=== PATIENT | female | born 1970 | race Caucasian/White ===

== ENCOUNTER → 2017-03-12 | Outpatient (CLI) | payer BC | END | disposition home or self-care (01) | LOC: C.PAPS 11:23 | PROVIDERS: ATTEND Family Medicine | DX: Z01.419 Encounter for gynecological examination (general) (routine) without abnormal findings (principal) ==

== ENCOUNTER → 2018-02-13 | Outpatient (CLI) | payer OTHER ==
[~2018-02-13] MED LIST: PEDICHW PO
[2018-02-13 13:20] LABS: BASO % 0.4 %; BASO ABS # 0.03 K/uL (0-0.2); EOS % 1.9 %; EOS ABS # 0.13 K/uL (0-0.5); HEMATOCRIT 41.3 % (37-47); HEMOGLOBIN 14.3 g/dL (12.0-16.0); IG# 0.01 K/uL (0.00-0.02); LYMPH % 31.7 %; MEAN CELL VOLUME 88.4 fL (80-100); MEAN CORPUSCULAR HEMOGLOBIN 30.6 pg (25-34); MEAN CORPUSCULAR HGB CONC 34.6 g/dl (32-36); MEAN PLATELET VOLUME 11.1 fL (7.4-10.4); MONO % 7.2 %; NEUT % 58.7 %; NEUT ABS # 4.08 K/uL (1.4-6.5); PLATELET COUNT 202 K/uL (130-400); RED CELL DISTRIBUTION WIDTH CV 13.1 % (11.5-14.5); RED CELL DISTRIBUTION WIDTH SD 42.1 fL (36.4-46.3); WHITE BLOOD COUNT 6.95 K/uL (4.8-10.8)
[2018-02-13 13:30] LABS: PTT PATIENT 27.2 SECONDS (21.0-31.0)
[2018-02-13 13:41] LABS: BLOOD UREA NITROGEN 17 mg/dl (7-18); CALCIUM 8.5 mg/dl (8.5-10.1); CARBON DIOXIDE 28 mmol/L (21-32); CREATININE 1.05 mg/dl (0.60-1.20); GLUCOSE 86 mg/dl (70-99); POTASSIUM 4.3 mmol/L (3.5-5.1); SODIUM 140 mmol/L (136-145)
== END | disposition home or self-care (01) ==
LOC: C.LAB1850 11:54
PROVIDERS: ATTEND Plastic Surgery
DX: D17.0 Benign lipomatous neoplasm of skin and subcutaneous tissue of head, face and neck (principal)

== ENCOUNTER → 2018-02-20 | Day surgery (SDC) | payer OTHER ==
[2018-01-27 11:22] VITALS: Ht 162.6 cm; Wt 74.1 kg
[~2018-02-20] VITALS: Ht 162.6 cm; Wt 74.1 kg
[~2018-02-20] MED LIST changes: +ACETAMINOPHEN 325 MG TAB PO PRN; +ATROPINE SULFATE 0.1 MG/ML 5ML SYR IV PRN; +CEFAZOLIN 2000MG IV PUSH 15 ML IV SCH; +EpHEDrine SULFATE INJ 50 MG/ML AMP IV PRN; +FENTANYL CITRATE INJ 50 MCG/1 ML 2 ML VIAL IV PRN; +FENTANYL CITRATE INJ 50 MCG/1 ML 2 ML VIAL ONE; +LACTATED RINGER'S 1000ML 1,000 ML IV SCH; +LIDOCAINE HCL 2% 2 ML VIAL (20MG/ML) ONE; +LIDOCAINE/EPINEPHRINE 1% 20 ML VIAL ONE; +METOCLOPRAMIDE HCL INJ 5 MG/ML 2 ML VIAL IV PRN; +MIDAZOLAM HCL 1 MG/ML 2ML VIAL ONE; +ONDANSETRON INJ 2 MG/ML 2 ML VIAL IV PRN; +OXYCODONE/ACETAMINOPHEN 5-325 TAB PO PRN; +POVIDONE-IODINE OP SOLN 30 ML BTL ONE; +PROPOFOL IV EMULSION 10 MG/ML 20 ML VIAL ONE; +SODIUM CHLORIDE 0.9% 1000ML 1,000 ML IV SCH
--- NOTE | 2018-02-20 06:53 | History & Physical Bridge - [place] ---
H&P Re-Evaluation Bridge Note: I have examined the patient, reviewed the History & Physical and in the interval since the performance of the History & Physical I have noted the following changes of clinical significance: No changes noted. H+P was outdated , new H+P documented.
--- NOTE | 2018-02-20 07:57 | [facility] Post Operative Brief Note ---
Immediate Operative Summary Operative Date February 20, 2018. Pre-Operative Diagnosis LIPOMA OF SKIN, FACE Post-Operative Diagnosis SAME Procedure(s) Performed Left Central Forehead Lipoma Excision Surgeon Dr. James Drew Spinner Hydraulic Surgeon(s) Celia Burrell PA-C Estimated Blood Loss 2 ML Findings Consistent with Post-Op Diagnosis Specimens A. Reccurrent Lipoma Left Central Forehead Anesthesia Type MAC Complication(s) none Disposition Disposition: Recovery Room / PACU
--- NOTE | 2018-02-20 08:00 | Discharge Instructions ---
Discharge Instructions Date of Service February 20, 2018. Admission Reason for Admission: Lipoma Of Skin, Face Discharge Discharge Diagnosis / Problem: lipoma of face Discharge Goals Goal(s): Decrease discomfort, Improve function Activity Recommendations Activity Limitations: per Instructions/Follow-up section ACTIVITY RECOMMENDATIONS: __Normal activities _x_No bending, lifting, vigorous activity or straining for 3 days __No driving _x_Driving allowed when you are off pain medications _x_Walking permitted __You should have help at home for ___ days DRESSINGS: _x_No dressings required __Keep dressings dry/in place until first office visit __Remove dressings ___ and leave dressings off _x_Apply ice __3_ days __Remove dressings and reapply garment __Apply antibiotic ointment (Bacitracin, Neosporin, etc) to wounds 3-4 times/ day for 10 days BATHING: _x_Keep dressings dry __Sponge bathing permitted _x_Showering permitted in 2 days _x_No swimming, hot tubs or soaking in a tub MEDICATIONS: Resume previous medications unless instructed otherwise by your surgeon. _x_Do not use aspirin, Motrin, Advil or Ibuprofen as these may promote bleeding. Please use Tylenol. _x_Prescription(s) provided: pain medication was provided at your last office visit OTHER INSTRUCTIONS: __Record drain output 2-3 times per day SPECIAL CARE INSTRUCTIONS: * It is normal to have a mild fever after surgery. If your temperature is higher than 101.5 degrees F, please call the office at [phone]. * Constipation is a typical side effect of pain medication. An over-the- counter stool softener will help relieve this. * Leaking around surgical drains may occur and should not cause concern. Sometimes these drains become clogged. If this happens, remove the bulb and milk the clot out of the tube, then replace the bulb. * Drainage from wounds after liposuction is normal and should be expected. Garments will become soiled. You should protect furniture and bedding. This drainage should mostly subside within 2-3 days. Leave garments in place unless instructed to remove them. * If you have unusual drainage from a wound or are concerned you have an infection or have any questions or concerns, please call the office at [phone]. FOLLOW UP VISIT: If not already scheduled, please call the office, , when you return home after surgery to schedule an appointment to be seen in _7__ days. . Current Hospital Diet Patient's current hospital diet: Discharge Diet Recommended Diet: Regular Diet Procedures Procedures Performed: Left Central Forehead Lipoma Excision Pending Studies Studies pending at discharge: yes List of pending studies: pathology Medical Emergencies . Who to Call and When: Medical Emergencies: If at any time you feel your situation is an emergency, please call 911 immediately. . Non-Emergent Contact Non-Emergency issues call your: Primary Care Provider, Surgeon . "Provider Documentation" section prepared by Celia Burrell. . [place] Drug Monitoring Program Search Results: no issues identified
[2018-02-20 08:02] VITALS: TEMP 36.5
--- NOTE | 2018-02-20 08:05 | History & Physical Bridge - [place] ---
H&P Re-Evaluation Bridge Note: I have examined the patient, reviewed the History & Physical and in the interval since the performance of the History & Physical I have noted the following changes of clinical significance: No changes noted
[2018-02-20 08:21] VITALS: BP 127/89; PULSE 61; O2SAT 100
--- NOTE | 2018-02-20 08:40 | Anesthesia Progress Nt - [facility] ---
Anesthesia Post Op Note Date & Time February 20, 2018 at 08:40 Vital Signs Pain Intensity: 0 Vital Signs Past 12 Hours Date Time Temp Pulse Resp B/P (MAP) Pulse Ox O2 Delivery O2 Flow Rate FiO2 02/20/18 08:21 61 14 127/89 (102) 100 Room Air 02/20/18 08:02 36.5 84 12 135/94 (108) 98 Nasal Cannula 02/20/18 06:29 36.9 81 20 129/85 (100) 100 Room Air Notes Mental Status: alert / awake / arousable, participated in evaluation Pt Amnestic to Procedure: Yes Nausea / Vomiting: adequately controlled Pain: adequately controlled Airway Patency, RR, SpO2: stable & adequate BP & HR: stable & adequate Hydration State: stable & adequate Anesthetic Complications: no major complications apparent
--- NOTE | 2018-02-20 12:07 | OPERATIVE REPORT ---
DATE OF OPERATION: 02/20/2018 PREOPERATIVE DIAGNOSIS: Recurrent lipoma, left central forehead. POSTOPERATIVE DIAGNOSIS: Recurrent lipoma, left central forehead. PROCEDURE: Excision, lipoma, left central forehead. SURGEON: Lori Drew MD COLLECTIVE BARGAINING SPECIALIST: Celia Burrell PA-C. ANESTHESIA: Local with sedation. COMPLICATIONS: None. INDICATION FOR THE PROCEDURE: The patient is a 47-year-old female who had a lipoma of her left forehead which I attempted to excise twice in the office. After both excisions, within several months, the patient developed recurrence. As such, we discussed performing excision in the operating room in hopes of resolving the concern. BRIEF DESCRIPTION OF THE PROCEDURE: The risks, benefits, and alternatives of the procedure were explained to the patient who agreed and signed consent. She was identified and marked in the preoperative holding area. She was brought to the operating room. She was positioned supine and placed under anesthesia without incident. Surgical site was prepped and draped sterilely. A time-out procedure was performed. Surgical site markings were reassessed. Lidocaine 1% with epinephrine was injected in a radial fashion to perform a field block around the lipoma. Using a short 25 needle, local anesthesia was used to hydrodissect along the periosteal plane as well as within the subcutaneous layer. A 15 blade scalpel was used to make the incision. Just deep to the dermis, a lipoma was encountered. Using small double hooks and a curved iris scissor, it was carefully dissected free from all attachments and prior scar tissue. Posteriorly, a curved hemostat was used to develop a plane along the periosteum. A portion of the frontalis muscle was resected with the specimen due to significant degree of scarring in hope for preventing recurrence. The entire lipoma was removed. No residual could be palpated or observed. Hemostasis was achieved with electrocautery. Frontalis muscle was reapproximated using 5-0 Vicryl interrupted sutures. Skin was reapproximated using 5-0 Vicryl interrupted dermal sutures and 5-0 Monocryl running subcuticular suture. Dermabond was applied. Lipoma measured 1x2.5 cm. I attest to the content of the Intraoperative Record and any orders documented therein. Any exceptions are noted below. [facility]
== END | disposition home or self-care (01) ==
LOC: X.SURG 06:19
PROVIDERS: ATTEND Plastic Surgery
DX: D17.39 Benign lipomatous neoplasm of skin and subcutaneous tissue of other sites (principal); E78.1 Pure hyperglyceridemia; Z83.49 Family history of other endocrine, nutritional and metabolic diseases; Z82.49 Family history of ischemic heart disease and other diseases of the circulatory system; Z80.1 Family history of malignant neoplasm of trachea, bronchus and lung